=== PATIENT | female | born 1960 | race Caucasian/White ===

== ENCOUNTER 2018-09-15 09:51 | Emergency (ER) | payer OTHER, SELFPAY ==
[2018-09-15 09:52] VITALS: BP 137/116; PULSE 93; RESP 20; TEMP 36.6; O2SAT 99; BMI 25.7
--- NOTE | 2018-09-15 10:15 | EKG12_ITS ---
Test Reason : SYNCOPE Blood Pressure : / mmHG Vent. Rate : 068 BPM Atrial Rate : 068 BPM P-R Int : 170 ms QRS Dur : 084 ms QT Int : 452 ms P-R-T Axes : 042 -30 029 degrees QTc Int : 480 ms Normal sinus rhythm Left axis deviation Inferior infarct , age undetermined Abnormal ECG Confirmed by MOUSTAPHA ALMAGUER, NORMAN ([id number]), avid editor SANTOS ROMERO ([id number]) on 09/17/2018 3:49:50 PM Referred By: ELVIRA Confirmed By:NORMAN GERARD MD
[2018-09-15 10:36] VITALS: BP 131/80; PULSE 96; RESP 18; O2SAT 94
[2018-09-15] MEDS: Ondansetron 4 MG/2 ML Vial IV (10:40)
[2018-09-15] MEDS: 0.9% Normal Saline 1,000 ML 1000 ML IV ×2 (10:40→11:57)
[2018-09-15 11:02] LABS: Absolute Lymphocyte Count 2.74 X10^3/ul (0.83-4.51); Absolute Neutrophil Count 10.1 X10^3/uL (2.0-7.7); Basophil# 0.04 X10^3/uL; Basophil% 0.3 % (0-1); Eosinophils% 0.7 % (0-5); Hematocrit 49.4 % (37-47); Hemoglobin 16.1 g/dl (12.0-15.0); Lymphocyte # 2.74 X10^3/ul (4.0); Lymphocyte % 19.9 % (19-41); Mean Corp Hgb Conc 32.6 g/gl (32-36); Mean Corpuscular Hgb 31.8 pg (27.0-32.0); Mean Corpuscular Volume 97.4 fL (81-99); Mean Platelet Vol. 10.1 fl (6.2-12.0); Monocyte# 0.76 X10^3/uL; Monocyte% 5.5 % (0-10); Neutrophil % 73.5 % (47-70); Platelet Count 237 K/mm3 (150-450); RBC Distribution Width CV 14.4 % (11.6-14.6); RBC Distribution Width SD 51.3 fl (35.1-43.9); Red Blood Count 5.07 M/mm3 (4.2-5.4); White Blood Count 13.8 K/mm3 (4.4-11.0)
[2018-09-15 11:04] LABS: POSITIVE COUNT NO; POSITIVE DIFFERENTIAL NO; POSITIVE MORPHOLOGY NO
[2018-09-15 11:14] VITALS: BP 118/68; PULSE 68; RESP 12; O2SAT 97
[2018-09-15 11:17] LABS: AST(SGOT) 56 U/L (15-37); Alanine Aminotransfer ALT/SGPT 39 U/L (13-56); Albumin, Serum 3.9 g/dL (3.2-5.0); Alkaline Phosphatase 110 U/L (45-117); Anion Gap 18 (5-15); BUN 19 mg/dL (7-18); BUN/Creat Ratio 25.1 RATIO (10-20); Calcium,Total 9.1 mg/dL (8.5-10.1); Chloride 106 mmol/L (98-107); Creatinine, Serum 0.76 mg/dL (0.55-1.02); EST Glomerular Filtration Rate 83 mL/min (>60); Est Glom Filt Rate - Afr Amer 101 mL/min (>60); Estimated Creatinine Clearance 65.93 ml/min; Globulin 3.8 g/dL (2.2-4.2); Glucose 58 mg/dL (74-106); Lipase 64 U/L (73-393); Potassium 3.1 mmol/L (3.5-5.1); Protein, Total 7.7 g/dL (6.4-8.2); Sodium Level 146 mmol/L (136-145)
[2018-09-15 11:59] VITALS: BP 115/63; PULSE 76; RESP 15; TEMP 36.2; O2SAT 96
--- NOTE | 2018-09-15 12:16 | ED.DCSUM_ITS ---
- ER Visit Summary Date of Service: 09/15/18 Chief Complaint: Syncope History of Present Illness: The patient is a 58 F who states on Friday evening she began with nausea vomiting and then turned to diarrhea. She got worse during last night. This morning she was on the toilet having diarrhea and sustained a syncopal episode. She has a remote history of leukemia and had a bone marrow transplant 2010. She notes chills and sweats but no fever. No injury from syncope. Physical Examination: Afebrile vital signs are stable Gen: Well-nourished well-developed Head: Normocephalic atraumatic Eyes: Perrl EOMI ENT: TMs clear no rhinorrhea moist mucous membranes Neck: Supple no lymphadenopathy no JVD nontender CVS: Regular rate rhythm no murmurs normal S1-S2 Respiratory: No distress clear to auscultation bilaterally chest nontender Abdomen: Soft mild tenderness in the right upper quadrant nondistended normal bowel sounds no masses Back: Nontender Extremity: Nontender no edema Skin: Normal color no rash diaphoretic Neuro: alert orientated ?3 CN II-XII intact normal strength sensation reflexes gait cerebellar Psych: Normal affect normal mood Test Results: White count 13.8. Glucose low at 58. Emergency Department Course and Treatment: Patient received 2 L IV fluids Zofran and D50. She is passed p.o. challenge. She is feeling better. I believe this to be a viral gastroenteritis that is led to dehydration and hypoglycemia. Her is a diabetic and has a glucometer and they will monitor the blood sugar today. Return if worsening or concerns. Impression: 1. Gastroenteritis 2. Vasovagal syncope 3. Dehydration 4. Hypoglycemia This note was generated with Touch [employer] dictation software. It may contain incorrect words, spelling, and punctuation that were not noted in review of the chart prior to signing ED Disposition - Plan for ED Patient: Disposition: Home or Assisted Living Instructions: ED Dehydration, ED Syncope Vasovagal Prescriptions: Ondansetron [Zofran Odt] 4 mg PO Q6H PRN PRN #14 tab PRN Reason: Nausea Referrals: Almita Jacob MD [Primary Care Provider] - As Needed
[2018-09-15] MEDS: Dextrose 50%-Water 25 GM/50 ML DISP.SYRIN IV (12:27)
[2018-09-15 12:45] LABS: Bedside Glucose 166 mg/dL (70-110)
[2018-09-15 13:19] VITALS: BP 122/67; PULSE 70; RESP 14; O2SAT 99
== END 2018-09-15 13:26 | disposition home or self-care (01) ==
PROVIDERS: Emergency Provider Emergency Medicine; Family Provider Family Medicine; PCP Family Medicine
DX: A08.4 Viral intestinal infection, unspecified (principal); R55 Syncope and collapse; E86.0 Dehydration; E16.2 Hypoglycemia, unspecified; Z85.6 Personal history of leukemia; Z79.899 Other long term (current) drug therapy
CPT/HCPCS: 80053; 82962; 83690; 85025; 93005; 96361; 96374; 96375; 99284; J7030; A4216; J2405